=== PATIENT | female | born 2000 | race Caucasian/White ===

== ENCOUNTER 2022-08-07 20:26 | Emergency (ER) | payer MEDICAID, SELFPAY ==
[2022-08-07 20:26] VITALS: BP 147/91; PULSE 90; RESP 16; TEMP 35.9; O2SAT 100
[2022-08-07 20:52] VITALS: BMI 42.1
--- NOTE | 2022-08-07 21:00 | RAD_ITS ---
STUDY: X-RAY - RIGHT ANKLE REASON FOR EXAM: Female, 22 years old. Injury/Pain TECHNIQUE: 3 view(s) of the ankle. COMPARISON: None. FINDINGS: Normal visualized distal tibia and fibula. Normal medial and lateral malleoli. Normal tibiotalar articulation and ankle mortise. Normal visualized talus and calcaneus. The visualized subtalar, talonavicular, calcaneocuboid and tarsal articulations are normal. There is no demonstrated fracture. The soft tissue structures are unremarkable. RAD/Ankle min 3 Views IMPRESSION: Normal x-ray examination of the ankle. Electronically Signed: Luis Meza MD at 21:23 EDT ,
--- NOTE | 2022-08-07 21:00 | RAD_ITS ---
STUDY: X-RAY - RIGHT FOOT CLINICAL: Female, 22 years old. Injury/Pain TECHNIQUE: 3 view(s) of the foot. COMPARISON: None. FINDINGS: Normal talus, calcaneus, and tarsal bones. Normal visualized subtalar, talonavicular, calcaneocuboid, tarsal and tarsometatarsal articulations. Normal metatarsi. Normal metatarsophalangeal joint of the great toe. Normal tibial and fibular sesamoid bones. Normal interphalangeal joint of the great toe. Normal phalanges of the great toe. Normal second through fifth metatarsophalangeal joints. Normal interphalangeal joints and phalanges of the lesser toes. The soft tissue structures are unremarkable. There is no demonstrated fracture. RAD/Foot min 3 Views IMPRESSION: Normal x-ray examination of the foot. Electronically Signed: Luis Meza MD at 21:24 EDT ,
--- NOTE | 2022-08-07 21:37 | ED.VIS.LOWEX ---
HPI History of Present Illness Chief Complaint: Lower Extremity Injury Informant: patient Narrative Narrative: Patient is a 22-year-old female, up-to-date on tetanus vaccination presenting with injury to her right foot. Patient states yesterday she had her right foot stepped on by a pony. She was wearing boots. She just cleaned the ponies hopes. The pony is approximately 55 inches tall. Patient has been taking [id number] ibuprofen. 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 Came in because she was concerned she could have a broken bone. No other complaints at this time. She states when the injury initially happened she did have a second or 2 of numbness of her foot but that is since resolved. [facility] Medical History PCOS (polycystic ovarian syndrome) Medical History no medical history Allergy/AdvReac Type Severity Reaction Status Date / Time No Known Allergies Allergy Verified 08/07/22 20:26 Social History Smoking Status: Never smoker ROS ROS ED Constitutional Constitutional ED: Denies chills or fever(s) Cardiovascular Cardiovascular: Denies chest pain Respiratory/Chest Respiratory/Chest: Denies cough Gastrointestinal Gastrointestinal: Denies nausea or vomiting Integumentary Reports Abrasions and other Neurologic Neurologic: Denies paresthesias or weakness Psychiatric Psychiatric: Denies anxiety Hematologic/Lymphatic Hematologic/Lymphatic: Denies easy bleeding or easy bruising EXAM Physical Exam Const Vital Signs: 08/07/22 20:26 Temperature 96.7 F L Temperature Source Temporal Pulse Rate 90 Respiratory Rate 16 Blood Pressure 147/91 H Blood Pressure Mean 109 Pulse Ox 100 Oxygen Delivery Method Room Air Positive well nourished and well developed General Appearance ED: well developed and NAD HEENT Reports moist mucous membranes Eyes PERRL Neck supple Chest Wall inspection of chest normal Resp normal respiratory effort Cardio Cardio Narrative: 2+ DP pulse Extremity full ROM Extremity Narrative: Abrasion to the top of the right midfoot. There is associated contusion. No obvious deformity of the foot. No tenderness palpation of the ankle. Normal Camacho test. No pinpoint bony tenderness. Compartments of the foot are soft. No pain out of proportion. Neuro oriented x3, moves all extremities and no sensory deficits noted Sensorium / Orientation: alert Psych mental status grossly normal Skin Skin Narrative: Superficial abrasion to the top of the right foot with a surrounding scattered ecchymosis. Associated contusion. No fluctuant mass appreciated. No active bleeding. MDM MDM MDM Narrative Medical decision making narrative: Patient evaluated for injury to her right foot. X-ray of the right foot and right ankle interpreted by myself as well as radiology shows no acute fracture. Patient be placed in an Tunde wrap. Counseled likely this is abrasion/contusion. As the abrasion was through she is I do not think she requires prophylactic antibiotics at this time. Physical exam not consistent with compartment syndrome or other more severe diagnosis. Counseled on RICE therapy. Is given a work note states she was seen in the ER today. States she does have the weekend off. Instructed to take [id number] 600 mg ibuprofen for pain and swelling. Can alternate this with Tylenol. Discharged home in stable condition. Radiography Diagnostic Testing: Clinical Impression(s) from Imaging Studies Ankle X-Ray 08/07/22 21:00 IMPRESSION: Normal x-ray examination of the ankle. Electronically Signed: Luis Meza MD at 21:23 EDT , Foot X-Ray 08/07/22 21:00 IMPRESSION: Normal x-ray examination of the foot. Electronically Signed: Luis Meza MD at 21:24 EDT , Discharge Plan Triage Chief Complaint: Lower Extremity Injury ED Provider: Alma Delia Sanchez Dx/Rx/DC Orders Clinical Impression: Contusion of foot, right Instructions: ED Foot Contusion, ED Crush Injury, Foot/Toe Stand Alone Forms: ED Work / School Excuse Primary Care Provider: Care Physician,No Primary Referrals: Jeff Seals DPM [Med Staff - Active Staff] - 3-5 Days if not improving Care Physician,No Primary [Primary Care Provider] - Activity Restrictions/Additional Instructions: Your x-ray does not show any dislocation or broken bone (fracture). If your injury does not improve or you still significant pain please follow-up with podiatry. You may always return to the emergency room. Wear the Tunde wrap to help with the swelling and bruising. Ice and elevate is much as possible. Try to stay off it for the next few days to allow to heal. Disposition Disposition: Home, Self Care
== END 2022-08-07 21:50 | disposition home or self-care (01) ==
PROVIDERS: Emergency Provider Emergency Medicine; Visit Provider Emergency Medicine
DX: S90.31XA Contusion of right foot, initial encounter (principal); W55.89XA Other contact with other mammals, initial encounter; Y93.K9 Activity, other involving animal care
CPT/HCPCS: 73610; 73630; 99282